=== PATIENT | male | born 1965 | race Caucasian/White ===

== ENCOUNTER 2019-05-08 15:47 | Emergency (ER) | payer MEDICARE, OTHER ==
[~2019-05-08] VITALS: Ht 180.3 cm; Wt 104.1 kg
[~2019-05-08 15:47] MED LIST: BUPR-93 PO; LAMO25TA25 PO; QUET100T PO
[2019-05-08] MEDS ORDERED: LISI-662 PO (16:09)
[2019-05-08] MEDS ORDERED: DESM0.2T29 PO (16:09)
[2019-05-08] MEDS ORDERED: BUPR1FIL3 SL (16:09)
[2019-05-08] MEDS ORDERED: BUPR75 PO (16:09)
[2019-05-08 19:20] VITALS: BP 123/79
== END 2019-05-08 19:25 | disposition home or self-care (01) ==
LOC: EMS 15:48
DX: S00.03XA Contusion of scalp, initial encounter (principal); I10 Essential (primary) hypertension; F32.9 Major depressive disorder, single episode, unspecified; F12.90 Cannabis use, unspecified, uncomplicated; F17.210 Nicotine dependence, cigarettes, uncomplicated; Z79.899 Other long term (current) drug therapy; Y04.0XXA Assault by unarmed brawl or fight, initial encounter; Y93.89 Activity, other specified; Y92.89 Other specified places as the place of occurrence of the external cause; Y99.8 Other external cause status
CPT/HCPCS: 70450; 70486

== ENCOUNTER 2021-08-15 20:40 | Emergency (ER) | payer MEDICARE, OTHER ==
[~2021-08-15] VITALS: Ht 185.4 cm; Wt 102.3 kg
[~2021-08-15 20:40] MED LIST changes: +BUPR-344 PO; -BUPR-93 PO; +BUPR1FIL3 SL; +DESM0.2T29 PO; -LAMO25TA25 PO; +LISI-894 PO; -QUET100T PO
[2021-08-15] MEDS ORDERED: ACETAMINOPHEN 500 MG TABLET PO ONE (21:45)
[2021-08-15 22:35] VITALS: BP 124/73
== END 2021-08-15 22:37 | disposition home or self-care (01) ==
LOC: EMS 20:43
DX: M79.642 Pain in left hand (principal); F32.A Depression, unspecified; I10 Essential (primary) hypertension; F17.210 Nicotine dependence, cigarettes, uncomplicated; F12.90 Cannabis use, unspecified, uncomplicated; Z85.89 Personal history of malignant neoplasm of other organs and systems; Z98.890 Other specified postprocedural states
CPT/HCPCS: 99283

== ENCOUNTER 2023-03-06 19:05 | Emergency (ER) | payer MEDICARE, OTHER ==
[~2023-03-06] VITALS: Ht 177.8 cm; Wt 100.0 kg
[2023-03-06 19:19] VITALS: BP 116/90; PULSE 83; RESP 17; TEMP 98.2
[2023-03-06] MEDS ORDERED: BUPR1FIL SL (19:26)
[2023-03-06 19:48] LABS: COVID AG,FIA SOURCE NASAL SWAB
[2023-03-06 20:09] LABS: INFLUENZA TYPE A NEGATIVE FOR TYPE A (NEGATIVE); INFLUENZA TYPE B NEGATIVE FOR TYPE B (NEGATIVE)
[2023-03-06 20:18] LABS: SARS-COV2 (COVID) ANTIGEN,FIA Positive (Negative)
== END 2023-03-06 22:13 | disposition left against medical advice (07) ==
LOC: EMS 19:07
DX: R06.02 Shortness of breath (principal); R05.9 Cough, unspecified; Z53.21 Procedure and treatment not carried out due to patient leaving prior to being seen by health care provider; Z20.822 Contact with and (suspected) exposure to COVID-19
CPT/HCPCS: 87804; 99281; Z7502